=== PATIENT | female | born 1990 | race African-American/Black ===

== ENCOUNTER 2023-07-04 10:10 | Inpatient (IN) | payer OTHER ==
[2023-07-04] MEDS: ELECTROLYTE-148 SOLN 1,000 ML IV SCH (10:30)
[2023-07-04 10:55] VITALS: BMI 24.6
[2023-07-04] MEDS: CITRIC ACID/SODIUM CITRATE 30 ML UNIT-DOSE CUP PO ONE (11:30)
[2023-07-04] MEDS ORDERED: ACETAMINOPHEN 325 MG TABLET (FP) PO PRN (12:34)
[2023-07-04] MEDS ORDERED: ONDANSETRON 4 MG/2 ML VIAL IVPUSH PRN (12:34)
[2023-07-04] MEDS ORDERED: morphine SULFATE/PF 1 MG/2 ML (2cc Syringe - QUVA) EP ONE (12:34)
[2023-07-04] MEDS ORDERED: IBUPROFEN 600 MG TABLET (FP) PO PRN (12:34)
[2023-07-04] MEDS ORDERED: ceFAZolin SODIUM 1 GM VIAL ONE (12:41)
[2023-07-04] MEDS ORDERED: SODIUM CHLORIDE 0.9% P/F 10 ML VIAL IJ ONE ×2 (12:41→12:42)
[2023-07-04] MEDS ORDERED: PHENYLEPHRINE HCL 10 MG/1 ML SINGLE DOSE VIAL ONE (12:41)
[2023-07-04] MEDS ORDERED: OXYTOCIN 10 UNITS/ML VIAL ONE (13:14)
[2023-07-04] MEDS ORDERED: ONDANSETRON 4 MG/2 ML VIAL ONE (14:08)
[2023-07-04] MEDS ORDERED: MIDAZOLAM HCL 2 MG/2 ML SINGLE DOSE VIAL ONE (14:08)
[2023-07-04] MEDS ORDERED: FENTANYL CITRATE/PF 50 MCG/ML VIAL ONE ×2 (14:21→14:42)
[2023-07-04] MEDS ORDERED: oxyCODONE HCL 5 MG TABLET PO PRN (15:13)
[2023-07-04 15:29] LABS: CORD BASE EXCESS -5.4 mmol/L (0-2); CORD PCO2 43.9 mmHg (30-78); CORD pH 7.298 (7.14-7.44)
[2023-07-04] MEDS: OXYTOCIN 20 UNITS in 0.9% NS 20 UNIT/1,000 ML INFUS.BAG IV SCH (16:00)
[2023-07-04] MEDS ORDERED: OXYTOCIN 20 UNITS in 0.9% NS 20 UNIT/1,000 ML INFUS.BAG IV ONE (16:01)
[2023-07-04] MEDS: ONDANSETRON 4 MG/2 ML VIAL IVPB PRN (17:27)
[2023-07-04] MEDS ORDERED: ACETAMINOPHEN 500 MG TABLET (FP) PO SCH (18:00)
[2023-07-04] MEDS: ACETAMINOPHEN 1000 MG/100 ML BAG IVPB SCH (18:08)
[2023-07-04] MEDS: IBUPROFEN 600 MG TABLET (FP) PO SCH (18:25)
[2023-07-04] MEDS: CEFAZOLIN SODIUM 2 GM in DEXTROSE 5%-WATER 100 ML IVPB SCH (21:12)
[2023-07-04] MEDS: SENNOSIDES/DOCUSATE COMBO (SENNA PLUS) TABLET (UD) PO SCH (22:00)
[2023-07-05 08:38] LABS: POTASSIUM 4.3 mmol/L (3.5-5.1)
[2023-07-05 08:40] LABS: CALCIUM 8.2 mg/dL (8.5-10.1)
[2023-07-05 08:44] LABS: CREATININE 0.5 mg/dL (0.55-1.3)
[2023-07-05 08:51] LABS: BASO % 0.3 % (0-2.0); EOS % 0.6 % (0-4.5); HEMATOCRIT 28.5 % (32.4-45.2); HEMOGLOBIN 9.1 GM/dL (10.7-15.3); LYMPH % 16.8 % (8-40); MCH 29.4 pg (25.7-33.7); MCHC 31.9 g/dl (32.0-36.0); MEAN CELL VOLUME 92.3 fl (80-96); MEAN PLT VOLUME 9.9 fl (7.5-11.1); MONO % 6.6 % (3.8-10.2); NEUT % 75.7 % (42.8-82.8); PLATELET COUNT 168 10^3/uL (134-434); RBC 3.09 M/mm3 (3.60-5.2); WHITE BLOOD COUNT 11.7 K/mm3 (4.0-10.0)
[2023-07-05] MEDS: ACETAMINOPHEN 500 MG TABLET (FP) PO SCH (13:28)
[2023-07-05] MEDS ORDERED: BISACODYL 10 MG SUPP.RECT RC PRN (15:13)
[2023-07-05] MEDS: SIMETHICONE 80 MG TAB.CHEW (FP) PO PRN (21:47)
[2023-07-06 08:27] LABS: BASO % 0.3 % (0-2.0); EOS % 2.2 % (0-4.5); HEMATOCRIT 24.1 % (32.4-45.2); HEMOGLOBIN 8.2 GM/dL (10.7-15.3); LYMPH % 18.1 % (8-40); MCH 30.7 pg (25.7-33.7); MCHC 33.9 g/dl (32.0-36.0); MEAN CELL VOLUME 90.5 fl (80-96); MEAN PLT VOLUME 9.8 fl (7.5-11.1); MONO % 9.3 % (3.8-10.2); NEUT % 70.1 % (42.8-82.8); PLATELET COUNT 164 10^3/uL (134-434); RBC 2.66 M/mm3 (3.60-5.2); RDW 14.1 % (11.6-15.6)
[2023-07-06 09:11] VITALS: BP 127/80; PULSE 74; RESP 19; TEMP 97.8
== END 2023-07-06 17:50 | disposition home or self-care (01) | DRG 540 ==
LOC: JLDR 10:10 → J3W 17:15
PROVIDERS: ADMIT Family Medicine; ATTEND Family Medicine
PROC: 10D00Z1 Extraction of Products of Conception, Low, Open Approach (ICD-10-PCS; principal; 2023-07-04)
PROC: 0DNW0ZZ Release Peritoneum, Open Approach (ICD-10-PCS; 2023-07-04)
DX: O34.219 Maternal care for unspecified type scar from previous cesarean delivery (principal); O69.81X0 Labor and delivery complicated by cord around neck, without compression, not applicable or unspecified; O99.892 Other specified diseases and conditions complicating childbirth; N73.6 Female pelvic peritoneal adhesions (postinfective); Z3A.49 Greater than 42 weeks gestation of pregnancy; Z37.0 Single live birth
CPT/HCPCS: 36415; 36600; 80048; 80053; 81003; 82803; 85025; 85610; 85730; 86850; 86900; 86901; 88307-TC; J0131